=== PATIENT | female | born 1970 | race Two or more races ===

== ENCOUNTER 2017-01-09 12:32 | Emergency (ER) | payer BC ==
[~2017-01-09 12:32] MED LIST: ALLEGRA-D1 TAB PO; ALLEGRA-D1 TAB.SR .; AMATIZA; AMITIZA24 MCG; ASTELIN137 MCG; AXERT12.5 MG; BACTRIM DS TABL1 TAB; BLOOD PRESSURE MED; BUTORPHANO10 MG/1 ML NS; CYMBALTA30 M1 PO; CYMBALTA30 MG PO; CYMBALTA60 MG; DURAGESIC1 PAT; DURAGESIC1 PATCH; EXALGO12 MG PO; FIORICET TABLET1 TAB PO; FLONASE ALLERG9.9 ML NS; FLONASE16 G2 NS; KADIAN60 MG; KADIAN80 MG; LEVAQUIN500 MG; LORTAB 7.5/5001 TAB; LYRICA50 MG; MAXALT10 M1 PO; MIGRANAL; MIGRANAL NS; NORCO 10/325 TA1 TAB; NORVASC10 M1 PO; NUCYNTA ER100 M1 PO; NUCYNTA ER100 MG PO; NUCYNTA75 MG PO; OXYCONTIN80 MG; PERCOCET 10-321 EACH PO; PERCOCET 5/3251 TAB PO; PHENERGAN25 M1 PO; QSYMIA 7.5 MG-1 EACH PO; RELPAX40 MG; RIZATRIPTAN PO; SOMA350 MG; SOMA350 MG PO; STADOL NS10 MG/ML NS; TOPAMAX100 M2 PO; TOPAMAX100 MG; TOPAMAX200 MG PO; TOPAMAX50 MG; VIVELLE-DOT1 EAC1 TD; XYZAL5 M1 PO; ZOFRAN ODT4 MG/UDTAB PO; ZOFRAN4 M2 PO; ZOFRAN4 MG PO; [UNRECOGNIZED DRUG - OTHER] PO
[2017-01-09] MEDS ORDERED: AMITRIPTYLINE H10 M1 PO (12:39)
[2017-01-09] MEDS ORDERED: IMITREX6 MG/0.52 SC (12:41)
[2017-01-09] MEDS ORDERED: LISINOPRIL-HCT1 EAC3 PO (12:42)
[2017-01-09] MEDS ORDERED: CYCLOBENZAPRINE5 M1 PO (14:59)
[2017-04-09] MEDS ORDERED: EFFEXOR XR75 M1 PO (20:39)
[2017-04-09] MEDS ORDERED: LEVOCETIRIZINE D5 M1 PO (20:40)
[2017-04-09] MEDS ORDERED: SOMA350 M1 PO (20:41)
[2017-04-09] MEDS ORDERED: ZOFRAN ODT8 MG PO (20:42)
[2017-04-09] MEDS ORDERED: BUTORPHANO10 MG/1 ML (20:43)
[2017-04-09] MEDS ORDERED: NUCYNTA50 M1 PO (20:45)
== END 2017-01-09 16:10 ==
LOC: EDMED 12:32
DX: R51 Headache (principal); R11.2 Nausea with vomiting, unspecified; M54.2 Cervicalgia; I10 Essential (primary) hypertension; Z87.891 Personal history of nicotine dependence; Z79.899 Other long term (current) drug therapy
CPT/HCPCS: J1200; J1885; J2060; J2270; J2765; J7030